=== PATIENT | female | born 1955 ===

== ENCOUNTER 2020-07-15 12:16 | Outpatient (CLI) | payer OTHER ==
[~2020-07-15 12:16] MED LIST: ZIAC 2.5-6.25 M1 TAB PO
== END 2020-07-15 18:00 | disposition home or self-care (01) ==
LOC: PPH VACUNA 12:16
PROVIDERS: ATTEND Emergency Medicine Pediatric Emergency Medicine
DX: Z23 Encounter for immunization (principal)

== ENCOUNTER 2021-07-13 09:30 | Outpatient (CLI) | payer OTHER | END 2021-07-13 09:32 | disposition home or self-care (01) | LOC: SONOGRAMA 09:30 | PROVIDERS: ATTEND General Practice | DX: N84.0 Polyp of corpus uteri (principal); N92.4 Excessive bleeding in the premenopausal period ==

== ENCOUNTER 2021-08-05 05:55 | Day surgery (SDC) | payer OTHER | END 2021-08-05 18:20 | disposition home or self-care (01) | LOC: CIR.AMB 05:55 | PROVIDERS: ATTEND Obstetrics & Gynecology | DX: N84.0 Polyp of corpus uteri (principal) ==

== ENCOUNTER 2021-10-26 10:36 | Outpatient (CLI) | payer OTHER | END 2021-10-26 10:50 | disposition home or self-care (01) | LOC: SONOGRAMA 10:36 | PROVIDERS: ATTEND Obstetrics & Gynecology | DX: N95.0 Postmenopausal bleeding (principal); N84.0 Polyp of corpus uteri ==

== ENCOUNTER 2021-12-30 06:51 | Day surgery (SDC) | payer OTHER ==
[~2021-12-30 06:51] MED LIST changes: +VALSARTAN80 MG PO
== END 2021-12-30 15:15 | disposition home or self-care (01) ==
LOC: CIR.AMB 06:51
PROVIDERS: ATTEND Obstetrics & Gynecology
DX: N84.0 Polyp of corpus uteri (principal); Z20.822 Contact with and (suspected) exposure to COVID-19; I10 Essential (primary) hypertension; Z87.891 Personal history of nicotine dependence; E66.9 Obesity, unspecified